=== PATIENT | male | born 1965 | race Caucasian/White ===

== ENCOUNTER 2022-10-09 10:06 | Emergency (ER) | payer SELFPAY ==
[~2022-10-09] VITALS: Ht 175.3 cm; Wt 111.1 kg
[2022-10-09] MEDS ORDERED: SODIUM CHLORIDE 0.9% 1000ML 1,000 ML IV STA (11:03)
[2022-10-09] MEDS ORDERED: NORVASC5 MG PO (11:06)
[2022-10-09] MEDS ORDERED: CLONIDINE HCL0.2 MG PO (11:06)
[2022-10-09] MEDS ORDERED: MAGNESIUM OXID400 MG PO (11:06)
[2022-10-09] MEDS ORDERED: MECLIZINE HCL 12.5 MG TAB PO ONE (11:15)
[2022-10-09 11:29] LABS: BASOPHILS % 0.4 % (0.0-1.0); EOSINOPHILS # (AUTO) 0.1 (0.0-0.4); EOSINOPHILS % 1.3 % (0.0-6.0); HEMATOCRIT 37.7 % (38.2-49.6); HEMOGLOBIN 12.4 g/dL (14.0-18.0); LYMPHOCYTES # (AUTO) 1.3 (1.0-3.2); LYMPHOCYTES % 18.4 % (18.0-39.1); MEAN CORPUSCULAR HGB CONC 32.9 g/dL (31-35); MEAN CORPUSCULAR VOLUME 94.3 fL (81-99); MONOCYTES # (AUTO) 0.5 (0.2-0.8); MONOCYTES % 6.6 % (4.4-11.3); NEUTROPHILS # (AUTO) 5.1 (2.1-6.9); NEUTROPHILS % 72.4 % (38.7-80.0); PLATELET COUNT 191 x10e3/uL (140-360); RED CELL DISTRIBUTION WIDTH 13.4 % (11.7-14.4)
[2022-10-09 11:47] LABS: INR 1.15; PROTHROMBIN TIME 14.9 seconds (11.9-14.5)
[2022-10-09 11:48] LABS: ALBUMIN 3.1 g/dL (3.5-5.0); ANION GAP 12.9 mmol/L (8-16); CALCIUM 8.5 mg/dL (8.4-10.2); CREATININE, SERUM 1.12 mg/dL (0.72-1.25); PARTIAL THROMBOPLASTIN TIME 30.9 seconds (23.8-35.5); POTASSIUM 3.9 mmol/L (3.5-5.1)
[2022-10-09 12:11] LABS: CLARITY,URINE CLEAR (CLEAR); COLOR,URINE YELLOW (YELLOW); KETONES,URINE NEGATIVE (NEGATIVE); LEUKOCYTE ESTERASE ,URINE NEGATIVE (NEGATIVE); NITRITE,URINE NEGATIVE (NEGATIVE); PROTEIN,URINE DIPSTICK NEGATIVE (NEGATIVE); URINE UROBILINOGEN 0.2 mg/dL (0.2 - 1)
[2022-10-09 12:22] LABS: BACTERIA,URINE FEW /HPF; EPITHELIAL CELLS,URINE FEW /LPF; RBC,URINE 21-50 /HPF (0-5); WBC,URINE (MAN) 0-5 /HPF (0-5)
[2022-10-09] MEDS ORDERED: CLONIDINE HCL0.1 MG PO ×2 (13:29→13:54)
[2022-10-09 14:26] VITALS: BP 123/70
== END 2022-10-09 14:20 | disposition home or self-care (01) ==
LOC: ER 10:18
DX: R42 Dizziness and giddiness (principal); I95.1 Orthostatic hypotension; R94.31 Abnormal electrocardiogram [ECG] [EKG]
CPT/HCPCS: 36415; 70450; 71045; 80053; 81001; 82550; 82553; 83735; 84484; 85025; 85610; 85730; 87086; 93005; 99284; J7030; J8597

== ENCOUNTER 2022-12-19 10:55 | Inpatient (IN) | payer OTHER ==
[~2022-12-19] VITALS: Ht 175.3 cm; Wt 111.1 kg
[~2022-12-19 10:55] MED LIST: CLONIDINE HCL0.1 MG PO; CLONIDINE HCL0.2 MG PO; MAGNESIUM OXID400 MG PO; NORVASC5 MG PO
[2022-12-19 11:34] LABS: BASOPHILS % 0.3 % (0.0-1.0); EOSINOPHILS # (AUTO) 0.2 (0.0-0.4); EOSINOPHILS % 2.2 % (0.0-6.0); HEMATOCRIT 39.8 % (38.2-49.6); HEMOGLOBIN 13.8 g/dL (14.0-18.0); LYMPHOCYTES # (AUTO) 1.6 (1.0-3.2); LYMPHOCYTES % 21.9 % (18.0-39.1); MEAN CORPUSCULAR HEMOGLOBIN 31.7 pg (28-32); MEAN CORPUSCULAR HGB CONC 34.7 g/dL (31-35); MEAN CORPUSCULAR VOLUME 91.3 fL (81-99); MONOCYTES # (AUTO) 0.6 (0.2-0.8); MONOCYTES % 7.5 % (4.4-11.3); NEUTROPHILS # (AUTO) 4.9 (2.1-6.9); NEUTROPHILS % 67.6 % (38.7-80.0); PLATELET COUNT 243 x10e3/uL (140-360); RED BLOOD COUNT 4.36 x10e6/uL (4.3-5.7); RED CELL DISTRIBUTION WIDTH 13.5 % (11.7-14.4)
[2022-12-19 11:39] LABS: INR 1.07; PROTHROMBIN TIME 14.4 seconds (11.9-14.5)
[2022-12-19 11:48] LABS: ALBUMIN 3.4 g/dL (3.5-5.0); ALBUMIN/GLOBULIN RATIO 1.1 (0.8-2.0); ANION GAP 12.8 mmol/L (8-16); CREATININE, SERUM 1.15 mg/dL (0.72-1.25); POTASSIUM 3.8 mmol/L (3.5-5.1)
[2022-12-19] MEDS ORDERED: SODIUM CHLORIDE 0.9% 1000ML 1,000 ML ONE (13:01)
[2022-12-19] MEDS ORDERED: ONDANSETRON HCL INJ 2MG/ML 2ML 2 MG/ML VIAL IV PRN ×2 (13:15→14:15)
[2022-12-19] MEDS ORDERED: SODIUM CHLORIDE 0.9% 1000ML 1,000 ML IV ONE (13:15)
[2022-12-19 13:48] LABS: CLARITY,URINE CLEAR (CLEAR); COLOR,URINE YELLOW (YELLOW); KETONES,URINE NEGATIVE (NEGATIVE); LEUKOCYTE ESTERASE ,URINE NEGATIVE (NEGATIVE); NITRITE,URINE NEGATIVE (NEGATIVE); PROTEIN,URINE DIPSTICK TRACE (NEGATIVE); URINE UROBILINOGEN 0.2 mg/dL (0.2 - 1)
[2022-12-19 13:58] LABS: AMORPHOUS SEDIMENT,URINE MODERATE (FEW); BACTERIA,URINE FEW /HPF
[2022-12-19] MEDS ORDERED: ASPIRIN 81 MG CHEW TAB PO ONE (14:15)
[2022-12-19] MEDS ORDERED: SODIUM CHLORIDE FLUSH 10 ML SYR INJ PRN (14:15)
[2022-12-19 22:15] VITALS: BP 142/89; PULSE 76; RESP 17; TEMP 98; O2SAT 100
[2022-12-20] VITALS (8 sets, daily range): BP systolic 113–132; BP diastolic 81–92; PULSE 61–74; RESP 16–19; TEMP 97.8–98.4; O2SAT 99–100
[2022-12-20 08:21] LABS: BASOPHILS % 0.4 % (0.0-1.0); EOSINOPHILS # (AUTO) 0.2 (0.0-0.4); EOSINOPHILS % 2.2 % (0.0-6.0); HEMATOCRIT 38.9 % (38.2-49.6); HEMOGLOBIN 12.9 g/dL (14.0-18.0); LYMPHOCYTES # (AUTO) 2.9 (1.0-3.2); LYMPHOCYTES % 34.5 % (18.0-39.1); MEAN CORPUSCULAR HEMOGLOBIN 30.9 pg (28-32); MEAN CORPUSCULAR HGB CONC 33.2 g/dL (31-35); MEAN CORPUSCULAR VOLUME 93.3 fL (81-99); MONOCYTES # (AUTO) 0.6 (0.2-0.8); MONOCYTES % 7.4 % (4.4-11.3); NEUTROPHILS # (AUTO) 4.7 (2.1-6.9); NEUTROPHILS % 55.1 % (38.7-80.0); PLATELET COUNT 236 x10e3/uL (140-360); RED BLOOD COUNT 4.17 x10e6/uL (4.3-5.7); RED CELL DISTRIBUTION WIDTH 13.2 % (11.7-14.4)
[2022-12-20 08:52] LABS: ANION GAP 10.9 mmol/L (8-16); CALCIUM 8.9 mg/dL (8.4-10.2); CREATININE, SERUM 1.05 mg/dL (0.72-1.25); POTASSIUM 3.9 mmol/L (3.5-5.1)
[2022-12-20 11:52] LABS: CREATINE KINASE MB 1.4 ng/mL (0-5.0)
[2022-12-20 14:28] LABS: CREATINE KINASE MB 1.4 ng/mL (0-5.0)
[2022-12-21] VITALS (7 sets, daily range): BP systolic 117–133; BP diastolic 70–89; PULSE 64–81; RESP 18–19; TEMP 97.9–98.8; O2SAT 98–100
[2022-12-22] VITALS (10 sets, daily range): BP systolic 80–130; BP diastolic 64–95; PULSE 66–90; RESP 17–21; TEMP 97.3–98.5; O2SAT 99–100
[2022-12-22 15:35] LABS: FREE T4 (FREE THYROXINE) 0.97 ng/dL (0.8-1.8); THYROID STIMULATING HORMONE 1.037 uIU/mL (0.350-4.940)
[2022-12-23] VITALS (7 sets, daily range): BP systolic 117–124; BP diastolic 82–93; PULSE 66–92; RESP 16–22; TEMP 97.3–98.6; O2SAT 98–99
[2022-12-23 06:00] LABS: BASOPHILS % 0.5 % (0.0-1.0); EOSINOPHILS # (AUTO) 0.2 (0.0-0.4); HEMATOCRIT 39.9 % (38.2-49.6); HEMOGLOBIN 13.9 g/dL (14.0-18.0); LYMPHOCYTES # (AUTO) 2.6 (1.0-3.2); LYMPHOCYTES % 30.1 % (18.0-39.1); MEAN CORPUSCULAR HEMOGLOBIN 31.7 pg (28-32); MEAN CORPUSCULAR HGB CONC 34.8 g/dL (31-35); MEAN CORPUSCULAR VOLUME 91.1 fL (81-99); MONOCYTES # (AUTO) 0.6 (0.2-0.8); MONOCYTES % 6.8 % (4.4-11.3); NEUTROPHILS # (AUTO) 5.2 (2.1-6.9); NEUTROPHILS % 60.3 % (38.7-80.0); PLATELET COUNT 239 x10e3/uL (140-360); RED BLOOD COUNT 4.38 x10e6/uL (4.3-5.7); RED CELL DISTRIBUTION WIDTH 13.2 % (11.7-14.4)
[2022-12-23 06:43] LABS: ANION GAP 11.4 mmol/L (8-16); CALCIUM 8.9 mg/dL (8.4-10.2); CREATININE, SERUM 1.16 mg/dL (0.72-1.25); POTASSIUM 3.4 mmol/L (3.5-5.1)
[2022-12-24] VITALS (9 sets, daily range): BP systolic 89–144; BP diastolic 42–96; PULSE 63–92; RESP 16–20; TEMP 97.6–98.7; O2SAT 94–100
[2022-12-25 04:36] VITALS: BP 114/58; PULSE 62; RESP 17; TEMP 98; O2SAT 95
[2022-12-25 12:00] VITALS: BP 121/86; PULSE 70; RESP 22; TEMP 98.4; O2SAT 98
[2022-12-25 16:00] VITALS: BP 134/94; PULSE 81; RESP 21; TEMP 98.2; O2SAT 99
[2022-12-25 20:00] VITALS: BP 117/82; PULSE 70; RESP 16; TEMP 98.2; O2SAT 99
[2022-12-25 22:23] VITALS: BP 117/82; PULSE 70; RESP 16; TEMP 98.2; O2SAT 99
[2022-12-26] VITALS (11 sets, daily range): BP systolic 75–132; BP diastolic 54–90; PULSE 66–100; RESP 17–19; TEMP 98–98.7; O2SAT 98–100
[2022-12-26] MEDS: CEPACOL SORE THROAT LOZENGES PO PRN ×3 (08:19→22:12)
[2022-12-26 13:27] LABS: BASOPHILS % 0.4 % (0.0-1.0); EOSINOPHILS # (AUTO) 0.3 (0.0-0.4); EOSINOPHILS % 2.8 % (0.0-6.0); HEMATOCRIT 41.3 % (38.2-49.6); HEMOGLOBIN 14.2 g/dL (14.0-18.0); LYMPHOCYTES # (AUTO) 2.1 (1.0-3.2); LYMPHOCYTES % 23.1 % (18.0-39.1); MEAN CORPUSCULAR HEMOGLOBIN 31.1 pg (28-32); MEAN CORPUSCULAR HGB CONC 34.4 g/dL (31-35); MEAN CORPUSCULAR VOLUME 90.6 fL (81-99); MONOCYTES # (AUTO) 0.6 (0.2-0.8); MONOCYTES % 7.2 % (4.4-11.3); NEUTROPHILS # (AUTO) 5.9 (2.1-6.9); NEUTROPHILS % 66.1 % (38.7-80.0); PLATELET COUNT 231 x10e3/uL (140-360); RED BLOOD COUNT 4.56 x10e6/uL (4.3-5.7); RED CELL DISTRIBUTION WIDTH 13.2 % (11.7-14.4)
[2022-12-26 13:43] LABS: ANION GAP 11.8 mmol/L (8-16); CALCIUM 8.9 mg/dL (8.4-10.2); CREATININE, SERUM 1.1 mg/dL (0.72-1.25); POTASSIUM 3.8 mmol/L (3.5-5.1)
[2022-12-26] MEDS ORDERED: FLUDROCORTISONE ACETATE 0.1 MG TAB PO ONE (13:45)
[2022-12-26] MEDS: SODIUM CHLORIDE 0.9% 1000ML 1,000 ML IV SCH (13:51)
[2022-12-26] MEDS ORDERED: MIDODRINE HCL 5 MG TABLET PO SCH (16:00)
[2022-12-27] VITALS (9 sets, daily range): BP systolic 68–128; BP diastolic 30–85; PULSE 62–101; RESP 18; TEMP 98–98.6; O2SAT 97–100
[2022-12-27] MEDS: SODIUM CHLORIDE 0.9% 1000ML 1,000 ML IV SCH (02:50)
[2022-12-27] MEDS ORDERED: MIDODRINE HCL 5 MG TABLET PO SCH (07:00)
[2022-12-27] MEDS: SODIUM CHLORIDE 1 GM TAB PO SCH (14:55)
[2022-12-27] MEDS: FLUDROCORTISONE ACETATE 0.1 MG TAB PO SCH (16:38)
[2022-12-28] VITALS (7 sets, daily range): BP systolic 96–132; BP diastolic 72–90; PULSE 57–95; RESP 16–20; TEMP 97.1–98.2; O2SAT 96–99
[2022-12-28 05:46] LABS: ANION GAP 11.7 mmol/L (8-16); CALCIUM 9.3 mg/dL (8.4-10.2); CREATININE, SERUM 1.06 mg/dL (0.72-1.25); POTASSIUM 3.7 mmol/L (3.5-5.1)
[2022-12-28 05:48] LABS: BASOPHILS % 0.3 % (0.0-1.0); EOSINOPHILS # (AUTO) 0.2 (0.0-0.4); EOSINOPHILS % 2.6 % (0.0-6.0); HEMATOCRIT 42.6 % (38.2-49.6); HEMOGLOBIN 14.8 g/dL (14.0-18.0); LYMPHOCYTES # (AUTO) 2.5 (1.0-3.2); LYMPHOCYTES % 28.5 % (18.0-39.1); MEAN CORPUSCULAR HGB CONC 34.7 g/dL (31-35); MEAN CORPUSCULAR VOLUME 92.2 fL (81-99); MONOCYTES # (AUTO) 0.6 (0.2-0.8); MONOCYTES % 6.4 % (4.4-11.3); NEUTROPHILS # (AUTO) 5.5 (2.1-6.9); NEUTROPHILS % 61.9 % (38.7-80.0); PLATELET COUNT 242 x10e3/uL (140-360); RED BLOOD COUNT 4.62 x10e6/uL (4.3-5.7); RED CELL DISTRIBUTION WIDTH 13.3 % (11.7-14.4)
[2022-12-28] MEDS: SODIUM CHLORIDE 1 GM TAB PO SCH (08:09)
[2022-12-28] MEDS: FLUDROCORTISONE ACETATE 0.1 MG TAB PO SCH (08:09)
[2022-12-28] MEDS ORDERED: ESCITALOPRAM OXALATE 10 MG TAB PO SCH (12:30)
[2022-12-29] MEDS ORDERED: FLUDROCORTISONE ACETATE 0.1 MG TAB PO SCH (08:00)
[2022-12-29] MEDS ORDERED: SODIUM CHLORIDE 1 GM TAB PO SCH (09:00)
== END 2022-12-28 18:00 | DRG 882 ==
LOC: ER 11:11 → ERHOLD 14:15 → MED/SURG3 21:25 → OBSVTOIN 12-22 10:09 → MED/SURG3 12-23 15:39 → MED/SURG2 12-25 06:49
PROVIDERS: ADMIT Internal Medicine; ATTEND Internal Medicine
DX: F45.8 Other somatoform disorders (principal); I10 Essential (primary) hypertension; E04.2 Nontoxic multinodular goiter; I95.1 Orthostatic hypotension; Z88.0 Allergy status to penicillin; Z89.022 Acquired absence of left finger(s); Z91.81 History of falling
CPT/HCPCS: 36415; 70450; 71045; 76536; 80048; 80053; 81001; 82024; 82550; 82553; 84439; 84443; 84484; 85025; 85610; 86376; 93005; 93306; 93880; 99284; G0378; J2405; J7030